=== PATIENT | female | born 1985 ===

== ENCOUNTER 2017-10-19 13:32 | Emergency (ER) | payer OTHER ==
[~2017-10-19] VITALS: Ht 175.3 cm; Wt 104.3 kg
== END 2017-10-19 16:00 | disposition home or self-care (01) ==
LOC: ER 13:32
DX: S61.111A Laceration without foreign body of right thumb with damage to nail, initial encounter (principal); W26.9XXA Contact with unspecified sharp object(s), initial encounter; Y92.009 Unspecified place in unspecified non-institutional (private) residence as the place of occurrence of the external cause
CPT/HCPCS: 12001; 99283